=== PATIENT | male | born 1980 | race Caucasian/White ===

== ENCOUNTER 2021-03-03 04:18 | Emergency (ER) | payer OTHER ==
[2021-03-03] MEDS ORDERED: IBUPROFEN800 MG PO (07:20)
== END 2021-03-03 07:34 | disposition home or self-care (01) ==
LOC: ER1 04:18
DX: S02.40FA Zygomatic fracture, left side, initial encounter for closed fracture (principal); W22.8XXA Striking against or struck by other objects, initial encounter
CPT/HCPCS: 70450; 70486; 99283